=== PATIENT | male | born 1990 | race Caucasian/White ===

== ENCOUNTER 2016-11-13 21:48 | Emergency (ER) | payer SELFPAY ==
[~2016-11-13] VITALS: Ht 185.4 cm; Wt 74.8 kg
--- OUTSIDE RECORDS SUMMARY | 2016-11-13 21:58 | XMS REPORT | Continuity of Care Document ---
Author Author Interface Organization Interface Address Unknown Phone Unavailable Problems Problem Status Onset Date Classification Date Reported Comments Source Palpitations (finding) 08/20 Diagnosis 08/25/2016 [facility] Medications Medication Details Route Status Patient Instructions Ordering Provider Order Date Source Allergies, Adverse Reactions, Alerts Substance Category Reaction Severity Reaction type Status Date Reported Comments Source Immunizations Immunization Date Given Site Status Last Updated Comments Source No data available for this section No data available for this section [facility]. Results Order Name Results Value Reference Range Date Interpretation Comments Source Vital Signs Vital Sign Value Date Comments Source Encounters Location Location Details Encounter Type Encounter Number Reason For Visit Attending Provider ADM Date DC Date Status Source [facility] [id number] Emergency [id number] Viktor Malloy 08/20/2016 Active [facility] Emergency [id number] Viktor Malloy 08/21/2016 08/22/2016 [facility] Procedures Procedure Code Date Perfomer Comments Source No data available for this section [facility].
[2016-11-13] MEDS ORDERED: AMOX500T2 PO (22:01)
[2016-11-13 22:07] VITALS: BP 144/85
[2016-11-13 22:08] LABS: BASOPHILS # (AUTO) 0.1 10^3/uL (0.0-0.1); BASOPHILS % (AUTO) 1 % (0-10); EOSINOPHILS # (AUTO) 0.5 10^3/uL (0.0-0.3); EOSINOPHILS % (AUTO) 4 % (0-10); LYMPHOCYTES # (AUTO) 6.8 X 10^3 (1.0-4.0); LYMPHOCYTES % (AUTO) 58 % (12-44); MEAN CORPUSCULAR HEMOGLOBIN 29 PG (25-34); MEAN CORPUSCULAR HGB CONC 34 G/DL (32-36); MEAN CORPUSCULAR VOLUME 87 FL (80-99); MEAN PLATELET VOLUME 9.9 FL (7.4-10.4); MONOCYTES # (AUTO) 0.7 X 10^3 (0.0-1.0); MONOCYTES % (AUTO) 6 % (0-12); NEUTROPHILS # (AUTO) 3.8 X 10^3 (1.8-7.8); NEUTROPHILS % (AUTO) 32 % (42-75); PLATELET COUNT 278 10^3/uL (130-400); RED BLOOD COUNT 5.16 10^6/uL (4.35-5.85); RED CELL DISTRIBUTION WIDTH 13.1 % (10.0-14.5); WHITE BLOOD COUNT 11.8 10^3/uL (4.3-11.0)
--- NOTE | 2016-11-13 22:14 | ED Cardiac General ---
History of Present Illness General Chief Complaint: Cardiac/General Problems Stated Complaint: HEART RATE Nursing Triage Note: patient reports drinking 'anything and everything alcoholic today', patient reports palpitations starting 10 min [employer] Source: patient Exam Limitations: intoxication History of Present Illness Time seen by provider: 22:14 Initial Comments Patient sleeping upon this examiner entering the room. Arouses easily to verbal stimuli. 26 yo male patient presents to the ED with c/o palpitations with onset approximately 10 min [employer]. Patient denies any previous history of palpitations. Patient states his been drinking alcohol all day today. When asked how much ETOH, patient states "a freaking lot." Patient has difficulty keeping his eyes open. Patient does c/o heartburn and indigestion today. Has had heartburn for "a long time". Worse with alcohol and spicy foods. Patient complains of epigastric pain. Denies chest pain. Timing/Duration: constant, other (10 minutes prior to arrival) Location: other (epigastric pain) Activities at Onset: other (drinking EtOH) Prior CP/Workup: no prior chest pain, no prior cardiac workup Modifying Factors: worse with other (worse with alcohol and spicy foods) NTG SL [employer]: No ASA po [employer]: No Allergies and Home Medications Allergies Coded Allergies: No Known Drug Allergies (Unverified , 11/13/16) Home Medications Amoxicillin 500 Mg Tablet 500 MG PO (Reported) Omeprazole 40 Mg Capsule.dr #30 40 MG PO DAILY Prescribed by: MAXIMILIAN HOLLINS on 11/13/16 2305 Potassium Chloride 10 Meq Tablet.er #6 10 MEQ PO BID Prescribed by: MAXIMILIAN HOLLINS on 11/14/16 0045 Sucralfate 1 Gm/10 Ml Oral.susp #560 1 GM PO ACHS Prescribed by: MAXIMILIAN HOLLINS on 11/13/16 2305 Review of Systems Constitutional: No diaphoresis, No dizziness, No fever, No malaise, No weakness EENTM: No Symptoms Reported Respiratory: Denies Cough, Denies Orthopnea, Denies Shortness of Air Cardiovascular: Denies Chest Pain, Denies Edema, Denies Irregular Heart Rate, Denies Lightheadedness, PalpitationsDenies Syncope Gastrointestinal: See HPIDenies Abdomen Distended, Abdominal Pain ( epigastric pain)Denies Blood Streaked Stools, Denies Constipated, Denies Diarrhea, Denies Nausea, Poor AppetiteDenies Poor Fluid Intake, Denies Rectal Bleeding, Denies Vomiting, Other (heartburn and indigestion) Genitourinary: No Symptoms Reported Musculoskeletal: no symptoms reported Skin: no symptoms reported Psychiatric/Neurological: No Symptoms Reported All Other Systems Reviewed Negative Unless Noted: Yes (Negative excepted noted.) Past Vzredja-Impudh-Awbvxu Hx Patient Social History Alcohol Use: Rarely Uses Recreational Drug Use: No Smoking Status: Current Everyday Smoker Type Used: Cigarettes Recent Foreign Travel: No Contact w/Someone Who Travel: No Recent Infectious Disease Expo: No Recent Hopitalizations: No Physical Abuse Screen: No Sexual Abuse: No Surgeries HX Surgeries: Yes (wisdom teeth) Surgeries: Orthopedic Respiratory Hx Respiratory Disorders: No Cardiovascular Hx Cardiac Disorders: No Neurological Hx Neurological Disorders: No Reproductive System Hx Reproductive Disorders: No Sexually Transmitted Disease: No Genitourinary Hx Genitourinary Disorders: No Gastrointestinal Hx Gastrointestinal Disorders: No Musculoskeletal Hx Musculoskeletal Disorders: No Endocrine Hx Endocrine Disorders: No HEENT HX ENT Disorders: No Cancer Hx Cancer: No Psychosocial Hx Psychiatric Problems: No Integumentary HX Skin/Integumentary Disorder: No Blood Transfusions Hx Blood Disorders: No Reviewed Nursing Assessment Reviewed/Agree w Nursing PMH: Yes Family Medical History Significant Family History: No Pertinent Family Hx Physical Exam Vital Signs Vital Sign - Last 12Hours 11/13/16 21:56 Temp 98.4 Pulse 140 Resp 25 B/P 145/77 Pulse Ox 98 Capillary Refill : Less Than 3 Seconds General Appearance: No Apparent Distress WD/WN Other (Patient sleeping upon this examiner entering the room. 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 Arouses easily to verbal stimuli. Slurred speech. Drowsy.) Skin: Normal Color Warm/Dry Progress/Results/Core Measures Results/Orders Lab Results Laboratory Tests Test 1/7/17 22:00 11/14/16 00:20 Range/Units Activated Partial Thromboplast Time 25 24-35 SEC Alanine Aminotransferase (ALT/SGPT) 18 0-55 U/L Albumin 4.9 H 3.2-4.5 G/DL Alkaline Phosphatase 83 40-136 U/L Anion Gap 14 5-14 MMOL/L Aspartate Amino Transf (AST/SGOT) 17 5-34 U/L BUN/Creatinine Ratio 9 Basophils # (Auto) 0.1 0.0-0.1 10^3/uL Basophils (%) (Auto) 1 0-10 % Blood Urea Nitrogen 8 7-18 MG/DL Calcium Level 9.3 8.5-10.1 MG/DL Carbon Dioxide Level 21 21-32 MMOL/L Chloride Level 108 H 98-107 MMOL/L Creatine Kinase MB 1.0 <6.6 NG/ML Creatinine 0.88 0.60-1.30 MG/DL Eosinophils # (Auto) 0.5 H 0.0-0.3 10^3/uL Eosinophils (%) (Auto) 4 0-10 % Estimat Glomerular Filtration Rate > 60 Glucose Level 126 H 70-105 MG/DL Hematocrit 45 40-54 % Hemoglobin 15.0 13.3-17.7 G/DL INR Comment 0.9 0.8-1.4 Lymphocytes # (Auto) 6.8 H 1.0-4.0 X 10^3 Lymphocytes (%) (Auto) 58 H 12-44 % Magnesium Level 2.5 H 1.8-2.4 MG/DL Mean Corpuscular Hemoglobin 29 25-34 PG Mean Corpuscular Hemoglobin Concent 34 32-36 G/DL Mean Corpuscular Volume 87 80-99 FL Mean Platelet Volume 9.9 7.4-10.4 FL Monocytes # (Auto) 0.7 0.0-1.0 X 10^3 Monocytes (%) (Auto) 6 0-12 % Myoglobin 24.5 10.0-92.0 NG/ML Neutrophils # (Auto) 3.8 1.8-7.8 X 10^3 Neutrophils (%) (Auto) 32 L 42-75 % Platelet Count 278 130-400 10^3/uL Potassium Level 3.0 L 3.6-5.0 MMOL/L Prothrombin Time 11.9 L 12.2-14.7 SEC Red Blood Count 5.16 4.35-5.85 10^6/uL Red Cell Distribution Width 13.1 10.0-14.5 % Serum Alcohol 143 H <10 MG/DL Sodium Level 143 135-145 MMOL/L Total Bilirubin 0.2 0.1-1.0 MG/DL Total Creatine Kinase 123 30-200 U/L Total Protein 7.7 6.4-8.2 G/DL Troponin I < 0.30 <0.30 NG/ML White Blood Count 11.8 H 4.3-11.0 10^3/uL Ur Tricyclic Antidepressants Screen NEGATIVE NEGATIVE Urine Amphetamines Screen NEGATIVE NEGATIVE Urine Barbiturates Screen NEGATIVE NEGATIVE Urine Benzodiazepines Screen NEGATIVE NEGATIVE Urine Cannabinoids Screen POSITIVE H NEGATIVE Urine Cocaine Screen NEGATIVE NEGATIVE Urine Methadone Screen NEGATIVE NEGATIVE Urine Methamphetamines Screen NEGATIVE NEGATIVE Urine Opiates Screen NEGATIVE NEGATIVE Urine Oxycodone Screen NEGATIVE NEGATIVE Urine Phencyclidine Screen NEGATIVE NEGATIVE Urine Propoxyphene Screen NEGATIVE NEGATIVE My Orders Orders-MAXIMILIAN HOLLINS PA Saline Lock/Iv-Start (11/13/16 22:02) Ekg Tracing (11/13/16 22:02) Monitor-Rhythm Ecg Trace Only (11/13/16 22:02) Cbc With Automated Diff (11/13/16 22:02) Magnesium (11/13/16 22:02) Chest 1 View, Ap/Pa Only (11/13/16 22:02) Cardiac Profile 1 (11/13/16 22:02) Comprehensive Metabolic Panel (11/13/16 22:02) Myoglobin Serum (11/13/16 22:02) Protime With Inr (11/13/16 22:02) Partial Thromboplastin Time (11/13/16 22:02) Creatine Kinase (11/13/16 22:02) Creatine Kinase Mb (11/13/16 22:02) Alcohol (11/13/16 22:02) Drug Screen Stat (Urine) (11/13/16 22:02) Famotidine Injection (Pepcid Injection) (11/13/16 22:42) Ns Iv 1000 Ml (Sodium Chloride 0.9%) (11/13/16 22:42) Ns W/Kcl 20 Meq/L (Ns Iv W/Kcl 20 Meq/L) (11/13/16 22:45) Ns Iv 1000 Ml (Sodium Chloride 0.9%) (11/13/16 22:44) Medications Given in ED Vital Signs/I&O Vital Sign - Last 12Hours 11/13/16 11/13/16 11/13/16 11/13/16 21:56 22:07 22:07 22:17 Temp 98.4 Pulse 140 109 109 99 Resp 25 16 16 16 B/P 145/77 144/85 144/85 112/62 Pulse Ox 98 98 98 97 O2 Delivery Room Air Room Air Room Air 11/13/16 11/13/16 11/14/16 22:30 23:15 01:06 Temp 97.6 Pulse 99 81 77 Resp 15 14 14 B/P 112/67 101/63 Pulse Ox 100 97 99 O2 Delivery Room Air Room Air Room Air Blood Pressure Mean: 104 Diagnostic Imaging Diagonstic Imaging: Xray Plain Films/CT/US/NM/MRI: chest Comments no acute cardiopulmonary process. Reviewed: Reviewed/Discussed (discussed and reviewed with Dr. Lizama.) Departure Communication Progress Notes Patient resting comfortably upon this examiner entering the room. Arouses to verbal stimuli. Patient is more alert time. Laboratory and diagnostic findings discussed with the patient. Patient reports overall feeling much better. Heart rate noted to be between 70-80 bpm. Patient is alert and oriented, no acute distress. CV regular rate and rhythm no murmur, lungs clear to auscultation. Plan for discharge to home. All return precautions discussed with the patient as described in the discharge instructions of this report. Patient voices understanding and agrees with the treatment plan. Impression Impression: Primary Impression: Alcoholic gastritis without bleeding Qualified Code: K29.20 - Alcoholic gastritis without bleeding Additional Impressions: Alcohol intoxication Qualified Code: F10.120 - Alcohol abuse with intoxication, uncomplicated Hypokalemia Disposition: 01 HOME, SELF-CARE Condition: Improved Departure-Patient Inst. Decision time for Depature: 00:44 Referrals: NO,LOCAL PHYSICIAN (PCP) Primary Care Physician Patient Instructions: ALCOHOL AND SUBSTANCE ABUSE, Gastritis (DC), Hypokalemia (DC) Add. Discharge Instructions: All discharge instructions reviewed with patient and/or family. Voiced understanding. Medications as instructed. No ibuprofen, Aleve, spicy foods, fatty foods, alcohol, tobacco use, secondhand smoke, caffeinated beverages, or carbonated beverages. Do not eat within 2 hours of lying down. Elevate the head of your bed if needed for reflux symptoms. Follow-up with family practitioner for recheck and possible need for outpatient upper endoscopy. Call for appointment time Tuesday. Return to the emergency department for worsened pain, vomiting, vomiting blood, black stools, rectal bleeding, irregular heartbeat, or any other concerns. Scripts Potassium Chloride 10 Meq Tablet.er10 Meq PO BID #6 TAB Ref 0 Prov:MAXIMILIAN HOLLINS 11/14/16 Sucralfate (Carafate)1 Gm/10 Ml Oral.susp1 Gm PO ACHS #560 ML Ref 0 Prov:MAXIMILIAN HOLLINS 11/13/16 Omeprazole 40 Mg Capsule.dr40 Mg PO DAILY #30 CAP Ref 0 Prov:MAXIMILIAN HOLLINS 11/13/16 Work/School Note: [employer] MAXIMILIAN HOLLINS Nov 13, 2016 22:14 Call for appointment time Tuesday. Return to the emergency department for worsened pain, vomiting, vomiting blood, black stools, rectal bleeding, irregular heartbeat, or any other concerns. Scripts Potassium Chloride 10 Meq Tablet.er10 Meq PO BID #6 TAB Ref 0 Prov:MAXIMILIAN HOLLINS 11/14/16 Sucralfate (Carafate)1 Gm/10 Ml Oral.susp1 Gm PO ACHS #560 ML Ref 0 Prov:MAXIMILIAN HOLLINS 11/13/16 Omeprazole 40 Mg Capsule.dr40 Mg PO DAILY #30 CAP Ref 0 Prov:MAXIMILIAN HOLLINS 11/13/16 Work/School Note: [employer] MAXIMILIAN HOLLINS Nov 13, 2016 22:14
[2016-11-13 22:17] VITALS: BP 112/62
[2016-11-13 22:17] LABS: INR 0.9 (0.8-1.4); PROTHROMBIN TIME PATIENT 11.9 SEC (12.2-14.7)
[2016-11-13 22:29] LABS: ALANINE AMINOTRANSFERASE 18 U/L (0-55); ALBUMIN 4.9 G/DL (3.2-4.5); ANION GAP 14 MMOL/L (5-14); ASPARTATE AMINO TRANSFERASE 17 U/L (5-34); BILIRUBIN,TOTAL 0.2 MG/DL (0.1-1.0); BLOOD UREA NITROGEN 8 MG/DL (7-18); BUN/CREATININE RATIO 9; CALCIUM 9.3 MG/DL (8.5-10.1); CARBON DIOXIDE 21 MMOL/L (21-32); CHLORIDE 108 MMOL/L (98-107); CREATINE KINASE 123 U/L (30-200); CREATININE SERUM 0.88 MG/DL (0.60-1.30); GFR ESTIMATED > 60; GLUCOSE 126 MG/DL (70-105); MAGNESIUM 2.5 MG/DL (1.8-2.4); SODIUM 143 MMOL/L (135-145); TOTAL PROTEIN 7.7 G/DL (6.4-8.2)
[2016-11-13 22:30] VITALS: BP 112/67
[2016-11-13 22:37] LABS: MYOGLOBIN SERUM 24.5 NG/ML (10.0-92.0)
[2016-11-13] MEDS ORDERED: NS IV 1000 ML 1,000 ML IV ONE ×2 (22:42→22:44)
[2016-11-13] MEDS ORDERED: FAMOTIDINE 20MG/2ML IV (PEPCID) IV STA (22:42)
[2016-11-13] MEDS ORDERED: NS W/KCL 20 MEQ/L 1,000 ML IV SCH (22:45)
[2016-11-13] MEDS ORDERED: OMEP40CA36 PO (23:05)
[2016-11-13] MEDS ORDERED: SUCR1ORA5 PO (23:05)
[2016-11-13 23:15] VITALS: BP 101/63
[2016-11-14] MEDS ORDERED: POTA10TA10 PO (00:45)
[2016-11-14 01:06] VITALS: BP 114/58
--- NOTE | 2016-11-14 06:35 | Diagnostic Imaging Report ---
INDICATION: Palpitations. COMPARISON: None available. TECHNIQUE: Single frontal radiograph of the chest dated November 13, 2016 FINDINGS: The cardiac silhouette is within normal limits. No significant pulmonary vascular congestion. The lungs are clear. No pleural effusion. No pneumothorax. No acute osseous abnormality. IMPRESSION: No acute cardiopulmonary abnormality. Dictated by: Dictated on workstation # [id number]
== END 2016-11-14 01:05 | disposition home or self-care (01) ==
LOC: ER 21:54
DX: K29.20 Alcoholic gastritis without bleeding (principal); F10.129 Alcohol abuse with intoxication, unspecified; E87.6 Hypokalemia; F17.210 Nicotine dependence, cigarettes, uncomplicated; Y90.6 Blood alcohol level of 120-199 mg/100 ml
CPT/HCPCS: 36415; 71010; 80053; 80306; 80320; 82550; 82553; 83735; 83874; 84484; 85025; 85610; 85730; 93005; 93041; 96361; 96374

== ENCOUNTER 2016-12-10 12:51 | Emergency (ER) | payer SELFPAY ==
[~2016-12-10] VITALS: Ht 185.4 cm; Wt 74.8 kg
[~2016-12-10 12:51] MED LIST: AMOX500T2 PO; OMEP40CA36 PO; POTA10TA10 PO; SUCR1ORA5 PO
[2016-12-10] MEDS ORDERED: KETOROLAC 30 MG/ML VIAL IVP ONE (13:00)
--- NOTE | 2016-12-10 13:01 | ED General ---
General Chief Complaint: Abdominal/GI Problems Stated Complaint: ABD PAIN,CONGESTION,VOMITING Nursing Triage Note: pt c/o chest pain, dyspnea, palpitations, n/v abd pain Nursing Sepsis Screen: No Definite Risk Source of Information: Patient Exam Limitations: No Limitations History of Present Illness Time Seen by Provider: 13:00 Initial Comments To ER with palpitations chest tightness and shortness of breath for several months. He is a one pack per day smoker but states that he quit yesterday. About 30 minutes ago he developed some nausea vomiting and right flank pain. The pain is currently gone and he is not nauseated anymore. No fevers or chills. No dysuria. No diarrhea or constipation. Timing/Duration: Intermittent Severity: Moderate Allergies and Home Medications Allergies Coded Allergies: No Known Drug Allergies (Unverified , 11/13/16) Home Medications Omeprazole 40 Mg Capsule.dr #30 40 MG PO DAILY Prescribed by: MAXIMILIAN HOLLINS on 11/13/16 2305 Constitutional: see HPI EENTM: see HPI Respiratory: No cough, short of breath Cardiovascular: no symptoms reported Genitourinary: no symptoms reported Musculoskeletal: no symptoms reported Skin: no symptoms reported Psychiatric/Neurological: No Symptoms Reported Hematologic/Lymphatic: No Symptoms Reported Past Yzcthqi-Xxqjnd-Tbfuki Hx Patient Social History Alcohol Use: Rarely Uses Recreational Drug Use: No Smoking Status: Current Everyday Smoker Type Used: Cigarettes Recent Foreign Travel: No Contact w/Someone Who Travel: No Recent Infectious Disease Expo: No Recent Hopitalizations: No Surgeries HX Surgeries: Yes (wisdom teeth) Surgeries: Orthopedic Respiratory Hx Respiratory Disorders: No Cardiovascular Hx Cardiac Disorders: No Neurological Hx Neurological Disorders: No Reproductive System Hx Reproductive Disorders: No Sexually Transmitted Disease: No Genitourinary Hx Genitourinary Disorders: No Gastrointestinal Hx Gastrointestinal Disorders: No Musculoskeletal Hx Musculoskeletal Disorders: No Endocrine Hx Endocrine Disorders: No HEENT HX ENT Disorders: No Cancer Hx Cancer: No Psychosocial Hx Psychiatric Problems: No Integumentary HX Skin/Integumentary Disorder: No Blood Transfusions Hx Blood Disorders: No Family Medical History Significant Family History: No Pertinent Family Hx Physical Exam Vital Signs Vital Sign - Last 12Hours 12/10/16 12:55 Temp 98.9 Pulse 83 Resp 16 B/P 125/70 Pulse Ox 96 O2 Delivery Room Air Capillary Refill : Less Than 3 Seconds General Appearance: No Apparent Distress WD/WN Eyes: Bilateral Eye EOMI, Bilateral Eye Normal Inspection, Bilateral Eye PERRL HEENT: PERRL/EOMI TMs Normal Neck: Full Range of Motion Normal Inspection Respiratory: Lungs Clear Normal Breath Sounds No Accessory Muscle Use No Respiratory Distress Cardiovascular: Regular Rate, Rhythm Normal Peripheral Pulses Gastrointestinal: Non Tender Soft Extremity: Normal Capillary Refill Normal Inspection Neurologic/Psychiatric: Alert Oriented x3 No Motor/Sensory Deficits Skin: Normal Color Warm/Dry Progress/Results/Core Measures Results/Orders Lab Results Laboratory Tests Test 12/10/16 13:02 12/10/16 13:20 Range/Units Alanine Aminotransferase (ALT/SGPT) 16 0-55 U/L Albumin 4.7 H 3.2-4.5 G/DL Alkaline Phosphatase 64 40-136 U/L Anion Gap 10 5-14 MMOL/L Aspartate Amino Transf (AST/SGOT) 18 5-34 U/L BUN/Creatinine Ratio 12 Basophils # (Auto) 0.0 0.0-0.1 10^3/uL Basophils (%) (Auto) 0 0-10 % Blood Urea Nitrogen 12 7-18 MG/DL Calcium Level 9.3 8.5-10.1 MG/DL Carbon Dioxide Level 24 21-32 MMOL/L Chloride Level 106 98-107 MMOL/L Creatinine 0.97 0.60-1.30 MG/DL Eosinophils # (Auto) 0.2 0.0-0.3 10^3/uL Eosinophils (%) (Auto) 1 0-10 % Estimat Glomerular Filtration Rate > 60 Glucose Level 84 70-105 MG/DL Hematocrit 43 40-54 % Hemoglobin 14.6 13.3-17.7 G/DL Lymphocytes # (Auto) 2.7 1.0-4.0 X 10^3 Lymphocytes (%) (Auto) 24 12-44 % Mean Corpuscular Hemoglobin 30 25-34 PG Mean Corpuscular Hemoglobin Concent 34 32-36 G/DL Mean Corpuscular Volume 88 80-99 FL Mean Platelet Volume 10.6 H 7.4-10.4 FL Monocytes # (Auto) 0.7 0.0-1.0 X 10^3 Monocytes (%) (Auto) 6 0-12 % Neutrophils # (Auto) 7.7 1.8-7.8 X 10^3 Neutrophils (%) (Auto) 68 42-75 % Platelet Count 217 130-400 10^3/uL Potassium Level 3.6 3.6-5.0 MMOL/L Red Blood Count 4.90 4.35-5.85 10^6/uL Red Cell Distribution Width 12.7 10.0-14.5 % Serum Alcohol < 10 <10 MG/DL Sodium Level 140 135-145 MMOL/L Total Bilirubin 0.7 0.1-1.0 MG/DL Total Protein 6.8 6.4-8.2 G/DL White Blood Count 11.3 H 4.3-11.0 10^3/uL Ur Tricyclic Antidepressants Screen NEGATIVE NEGATIVE Urine Amphetamines Screen NEGATIVE NEGATIVE Urine Bacteria LARGE H /HPF Urine Barbiturates Screen NEGATIVE NEGATIVE Urine Benzodiazepines Screen NEGATIVE NEGATIVE Urine Bilirubin NEGATIVE NEGATIVE Urine Cannabinoids Screen NEGATIVE NEGATIVE Urine Casts NONE /LPF Urine Clarity CLEAR Urine Cocaine Screen NEGATIVE NEGATIVE Urine Color YELLOW Urine Crystals NONE /LPF Urine Culture Indicated YES Urine Glucose (UA) NEGATIVE NEGATIVE Urine Ketones NEGATIVE NEGATIVE Urine Leukocyte Esterase NEGATIVE NEGATIVE Urine Methadone Screen NEGATIVE NEGATIVE Urine Methamphetamines Screen NEGATIVE NEGATIVE Urine Mucus NEGATIVE /LPF Urine Nitrite NEGATIVE NEGATIVE Urine Opiates Screen NEGATIVE NEGATIVE Urine Oxycodone Screen NEGATIVE NEGATIVE Urine Phencyclidine Screen NEGATIVE NEGATIVE Urine Propoxyphene Screen NEGATIVE NEGATIVE Urine Protein NEGATIVE NEGATIVE Urine RBC NONE /HPF Urine RBC (Auto) NEGATIVE NEGATIVE Urine Specific [place] 1.005 L 1.016-1.022 Urine Squamous Epithelial Cells TNTC H /HPF Urine Urobilinogen NORMAL NORMAL MG/DL Urine WBC 2-5 /HPF Urine pH 7 5-9 My Orders Marlene-JESICA ESPINAL APRN Cbc With Automated Diff (12/10/16 12:59) Comprehensive Metabolic Panel (12/10/16 12:59) Chest Pa/Lat (2 View) (12/10/16 12:59) Ekg Tracing (12/10/16 12:59) Thyroid Stimulating Hormone (12/10/16 12:59) Ua Culture If Indicated (12/10/16 12:59) Ketorolac Injection (Toradol Injection) (12/10/16 13:00) Saline Lock/Iv-Start (12/10/16 12:59) Drug Screen Stat (Urine) (12/10/16 13:04) Alcohol (12/10/16 13:04) Urine Culture (12/10/16 13:20) Antacid Suspension (Mylanta Suspension (12/10/16 13:45) Lidocaine 2% Viscous 15 Ml (Xylocaine Vi (12/10/16 13:45) Medications Given in ED Current Medications Medications Dose Ordered Sig/Juanita Route Start Time Stop Time Status Last Admin Dose Admin Ketorolac Tromethamine 30 mg ONCE ONCE IVP 12/10/16 13:00 12/10/16 13:01 DC 12/10/16 13:07 30 MG Vital Signs/I&O Vital Sign - Last 12Hours 12/10/16 12:55 Temp 98.9 Pulse 83 Resp 16 B/P 125/70 Pulse Ox 96 O2 Delivery Room Air Blood Pressure Mean: 88 Departure Impression Impression: Primary Impression: Nausea and vomiting Additional Impression: Chest pain Disposition: HOME, SELF-CARE Condition: Stable Departure-Patient Inst. Decision time for Depature: 14:13 Referrals: NO,LOCAL PHYSICIAN (PCP/Family) Primary Care Physician Patient Instructions: Nausea and Vomiting, Adult Add. Discharge Instructions: 1. Return to ER for any concerns 2. Follow-up with your doctor next week 3. All discharge instructions reviewed with patient and/or family. Voiced understanding. Scripts Ondansetron (Zofran Odt)8 Mg Tab.rapdis8 Mg PO Q6H PRN NAUSEA/VOMITING #10 TAB Prov:JESICA ESPINAL APRN 12/10/16 JESICA ESPINAL APRN Dec 10, 2016 13:01
[2016-12-10 13:13] LABS: BASOPHILS % (AUTO) 0 % (0-10); EOSINOPHILS # (AUTO) 0.2 10^3/uL (0.0-0.3); EOSINOPHILS % (AUTO) 1 % (0-10); LYMPHOCYTES # (AUTO) 2.7 X 10^3 (1.0-4.0); LYMPHOCYTES % (AUTO) 24 % (12-44); MEAN CORPUSCULAR HEMOGLOBIN 30 PG (25-34); MEAN CORPUSCULAR HGB CONC 34 G/DL (32-36); MEAN CORPUSCULAR VOLUME 88 FL (80-99); MEAN PLATELET VOLUME 10.6 FL (7.4-10.4); MONOCYTES # (AUTO) 0.7 X 10^3 (0.0-1.0); MONOCYTES % (AUTO) 6 % (0-12); NEUTROPHILS # (AUTO) 7.7 X 10^3 (1.8-7.8); NEUTROPHILS % (AUTO) 68 % (42-75); PLATELET COUNT 217 10^3/uL (130-400); RED CELL DISTRIBUTION WIDTH 12.7 % (10.0-14.5); WHITE BLOOD COUNT 11.3 10^3/uL (4.3-11.0)
--- NOTE | 2016-12-10 13:22 | Diagnostic Imaging Report ---
INDICATION: Shortness of breath, chest pain. PA and lateral chest. FINDINGS: Heart size and pulmonary vascularity are normal. Lungs are clear. There are no effusions or pneumothoraces. IMPRESSION: Negative chest. Dictated by: Dictated on workstation # [id number]
[2016-12-10 13:27] LABS: BILIRUBIN,URINE NEGATIVE (NEGATIVE); KETONES,URINE NEGATIVE (NEGATIVE); LEUKOCYTE ESTERASE ,URINE NEGATIVE (NEGATIVE); NITRITE,URINE NEGATIVE (NEGATIVE); PH,URINE 7 (5-9); PROTEIN,URINE NEGATIVE (NEGATIVE); UROBILINOGEN,URINE NORMAL (NORMAL)
[2016-12-10 13:34] LABS: SQUAMOUS EPITHELIAL CELL,UR TNTC /HPF
[2016-12-10] MEDS ORDERED: LIDOCAINE 2% VISCOUS 15 ML UDC PO ONE (13:45)
[2016-12-10] MEDS ORDERED: ANTACID SUSP 30 ML UDC (MYLANTA) PO ONE (13:45)
[2016-12-10 14:00] LABS: ALANINE AMINOTRANSFERASE 16 U/L (0-55); ALBUMIN 4.7 G/DL (3.2-4.5); ALCOHOL < 10 MG/DL (<10); ANION GAP 10 MMOL/L (5-14); ASPARTATE AMINO TRANSFERASE 18 U/L (5-34); BILIRUBIN,TOTAL 0.7 MG/DL (0.1-1.0); BLOOD UREA NITROGEN 12 MG/DL (7-18); BUN/CREATININE RATIO 12; CALCIUM 9.3 MG/DL (8.5-10.1); CARBON DIOXIDE 24 MMOL/L (21-32); CHLORIDE 106 MMOL/L (98-107); CREATININE SERUM 0.97 MG/DL (0.60-1.30); GFR ESTIMATED > 60; GLUCOSE 84 MG/DL (70-105); POTASSIUM 3.6 MMOL/L (3.6-5.0); SODIUM 140 MMOL/L (135-145); TOTAL PROTEIN 6.8 G/DL (6.4-8.2)
[2016-12-10 14:12] LABS: THYROID STIMULATING HORMONE 0.55 UIU/ML (0.35-4.94)
[2016-12-10] MEDS ORDERED: ONDA8TAB9 PO (14:14)
[2016-12-10 15:02] VITALS: BP 118/62
== END 2016-12-10 15:02 | disposition home or self-care (01) ==
LOC: EDUNIT# 12:51 → ER 12:53
DX: R07.89 Other chest pain (principal); R11.2 Nausea with vomiting, unspecified; R10.31 Right lower quadrant pain; F17.210 Nicotine dependence, cigarettes, uncomplicated
CPT/HCPCS: 36415; 71020; 80053; 80306; 80320; 81000; 84443; 85025; 87088; 93005; 96374

== ENCOUNTER 2017-01-15 12:59 | Emergency (ER) | payer SELFPAY ==
[~2017-01-15] VITALS: Ht 185.4 cm; Wt 74.8 kg
[~2017-01-15 12:59] MED LIST changes: +ONDA8TAB9 PO
[2017-01-15] MEDS ORDERED: NS IV 1000 ML 1,000 ML IV ONE (13:16)
[2017-01-15 13:18] LABS: BASOPHILS % (AUTO) 0 % (0-10); EOSINOPHILS # (AUTO) 0.1 10^3/uL (0.0-0.3); EOSINOPHILS % (AUTO) 2 % (0-10); LYMPHOCYTES # (AUTO) 1.9 X 10^3 (1.0-4.0); LYMPHOCYTES % (AUTO) 30 % (12-44); MEAN CORPUSCULAR HEMOGLOBIN 30 PG (25-34); MEAN CORPUSCULAR HGB CONC 34 G/DL (32-36); MEAN CORPUSCULAR VOLUME 88 FL (80-99); MEAN PLATELET VOLUME 10.2 FL (7.4-10.4); MONOCYTES # (AUTO) 0.3 X 10^3 (0.0-1.0); MONOCYTES % (AUTO) 6 % (0-12); NEUTROPHILS # (AUTO) 3.8 X 10^3 (1.8-7.8); NEUTROPHILS % (AUTO) 62 % (42-75); PLATELET COUNT 210 10^3/uL (130-400); RED BLOOD COUNT 5.16 10^6/uL (4.35-5.85); RED CELL DISTRIBUTION WIDTH 13.1 % (10.0-14.5); WHITE BLOOD COUNT 6.1 10^3/uL (4.3-11.0)
--- NOTE | 2017-01-15 13:22 | ED Cardiac General ---
History of Present Illness General Chief Complaint: Cardiac/General Problems Stated Complaint: INSCREASED HEART RATE Nursing Triage Note: to ER by [facility] with reports of intermittent tachycardia. Patient reports similar event in past, with negative work-up. Patient reports that he did not follow-up with anyone after that episode. Source: patient Exam Limitations: no limitations History of Present Illness Time seen by provider: 13:05 Initial Comments Here by EMS with report of intermittent fast heart rate. States he is just watching TV. Denies any significant caffeine. Has history of previous in the past without any significant findings. Denies nausea or vomiting. States that he has feeling of palpitations in his chest. Notes that his heart rate is fast. Timing/Duration: 1 hour Severity: moderate Location: central Activities at Onset: none Prior CP/Workup: non-cardiac NTG SL SENIOR REACTOR OPERATOR: No ASA po SENIOR REACTOR OPERATOR: No Associated Systoms: No Chest Pain, No Fever/Chills, No Nausea/Vomiting, No Shortness of Air, No Weakness Allergies and Home Medications Allergies Coded Allergies: No Known Drug Allergies (Unverified , 11/13/16) Home Medications No Active Prescriptions or Reported Meds Review of Systems Constitutional: see HPINo chills, No fever EENTM: No Symptoms Reported Respiratory: No Symptoms Reported Cardiovascular: See HPIDenies Chest Pain, Palpitations Gastrointestinal: No Symptoms ReportedDenies Nausea, Denies Vomiting Genitourinary: No Symptoms Reported Musculoskeletal: no symptoms reported All Other Systems Reviewed Negative Unless Noted: Yes Past Haqoowv-Rcwqrs-Oltpat Hx Patient Social History Alcohol Use: Occasionally Uses Recreational Drug Use: No Smoking Status: Current Everyday Smoker Type Used: Cigarettes Recent Foreign Travel: No Contact w/Someone Who Travel: No Recent Infectious Disease Expo: No Recent Hopitalizations: No Surgeries HX Surgeries: Yes (wisdom teeth) Surgeries: Orthopedic Respiratory Hx Respiratory Disorders: No Cardiovascular Hx Cardiac Disorders: No Neurological Hx Neurological Disorders: No Reproductive System Hx Reproductive Disorders: No Sexually Transmitted Disease: No Genitourinary Hx Genitourinary Disorders: No Gastrointestinal Hx Gastrointestinal Disorders: Yes Gastrointestinal Disorders: Gastroesophageal Reflux Musculoskeletal Hx Musculoskeletal Disorders: No Endocrine Hx Endocrine Disorders: No HEENT HX ENT Disorders: No Cancer Hx Cancer: No Psychosocial Hx Psychiatric Problems: No Integumentary HX Skin/Integumentary Disorder: No Blood Transfusions Hx Blood Disorders: No Reviewed Nursing Assessment Reviewed/Agree w Nursing PMH: Yes Family Medical History Significant Family History: CAD Under 55 Years Old Physical Exam Vital Signs Vital Sign - Last 12Hours 01/15/17 13:07 Temp 98.4 Pulse 71 Resp 18 B/P 118/76 Pulse Ox 98 O2 Delivery Room Air Capillary Refill : Less Than 3 Seconds General Appearance: No Apparent Distress WD/WN HEENT: PERRL/EOMI Pharynx Normal Neck: Non Tender Supple Respiratory: Lungs Clear Normal Breath Sounds Cardiovascular: Regular Rate, Rhythm No Murmur Gastrointestinal: Non Tender Soft Extremity: Non Tender No Calf Tenderness Neurologic/Psychiatric: Alert Oriented x3 Skin: Normal Color Warm/Dry Progress/Results/Core Measures Results/Orders Lab Results Laboratory Tests Test 01/15/17 13:06 01/15/17 14:58 Range/Units Alanine Aminotransferase (ALT/SGPT) 15 0-55 U/L Albumin 4.2 3.2-4.5 G/DL Alkaline Phosphatase 61 40-136 U/L Anion Gap 13 5-14 MMOL/L Aspartate Amino Transf (AST/SGOT) 16 5-34 U/L BUN/Creatinine Ratio 13 Basophils # (Auto) 0.0 0.0-0.1 10^3/uL Basophils (%) (Auto) 0 0-10 % Blood Urea Nitrogen 12 7-18 MG/DL Calcium Level 9.2 8.5-10.1 MG/DL Carbon Dioxide Level 21 21-32 MMOL/L Chloride Level 108 H 98-107 MMOL/L Creatinine 0.93 0.60-1.30 MG/DL D-Dimer < 0.27 0.00-0.49 UG/ML Eosinophils # (Auto) 0.1 0.0-0.3 10^3/uL Eosinophils (%) (Auto) 2 0-10 % Estimat Glomerular Filtration Rate > 60 Glucose Level 101 70-105 MG/DL Hematocrit 45 40-54 % Hemoglobin 15.4 13.3-17.7 G/DL Lymphocytes # (Auto) 1.9 1.0-4.0 X 10^3 Lymphocytes (%) (Auto) 30 12-44 % Magnesium Level 2.1 1.8-2.4 MG/DL Mean Corpuscular Hemoglobin 30 25-34 PG Mean Corpuscular Hemoglobin Concent 34 32-36 G/DL Mean Corpuscular Volume 88 80-99 FL Mean Platelet Volume 10.2 7.4-10.4 FL Monocytes # (Auto) 0.3 0.0-1.0 X 10^3 Monocytes (%) (Auto) 6 0-12 % Neutrophils # (Auto) 3.8 1.8-7.8 X 10^3 Neutrophils (%) (Auto) 62 42-75 % Platelet Count 210 130-400 10^3/uL Potassium Level 3.6 3.6-5.0 MMOL/L Red Blood Count 5.16 4.35-5.85 10^6/uL Red Cell Distribution Width 13.1 10.0-14.5 % Sodium Level 142 135-145 MMOL/L Thyroid Stimulating Hormone (TSH) 0.32 L 0.35-4.94 UIU/ML Total Bilirubin 0.9 0.1-1.0 MG/DL Total Protein 6.7 6.4-8.2 G/DL Troponin I < 0.30 <0.30 NG/ML White Blood Count 6.1 4.3-11.0 10^3/uL Ur Tricyclic Antidepressants Screen NEGATIVE NEGATIVE Urine Amphetamines Screen NEGATIVE NEGATIVE Urine Bacteria NEGATIVE /HPF Urine Barbiturates Screen NEGATIVE NEGATIVE Urine Benzodiazepines Screen NEGATIVE NEGATIVE Urine Bilirubin NEGATIVE NEGATIVE Urine Cannabinoids Screen NEGATIVE NEGATIVE Urine Casts NONE /LPF Urine Clarity CLEAR Urine Cocaine Screen NEGATIVE NEGATIVE Urine Color YELLOW Urine Crystals NONE /LPF Urine Culture Indicated NO Urine Glucose (UA) NEGATIVE NEGATIVE Urine Ketones NEGATIVE NEGATIVE Urine Leukocyte Esterase NEGATIVE NEGATIVE Urine Methadone Screen NEGATIVE NEGATIVE Urine Methamphetamines Screen NEGATIVE NEGATIVE Urine Mucus NEGATIVE /LPF Urine Nitrite NEGATIVE NEGATIVE Urine Opiates Screen NEGATIVE NEGATIVE Urine Oxycodone Screen NEGATIVE NEGATIVE Urine Phencyclidine Screen NEGATIVE NEGATIVE Urine Propoxyphene Screen NEGATIVE NEGATIVE Urine Protein NEGATIVE NEGATIVE Urine RBC NONE /HPF Urine RBC (Auto) NEGATIVE NEGATIVE Urine Specific [place] 1.010 L 1.016-1.022 Urine Squamous Epithelial Cells NONE /HPF Urine Urobilinogen NORMAL NORMAL MG/DL Urine WBC NONE /HPF Urine pH 8 5-9 My Orders Orders-JAMSHID DAMON MD Fibrin Degradation Products (01/15/17 13:15) Magnesium (01/15/17 13:15) Troponin I (01/15/17 13:15) Chest Pa/Lat (2 View) (01/15/17 13:15) Ns Iv 1000 Ml (Sodium Chloride 0.9%) (01/15/17 13:16) Medications Given in ED Current Medications Medications Dose Ordered Sig/Juanita Route Start Time Stop Time Status Last Admin Dose Admin Sodium Chloride 1,000 ml @ 0 mls/hr Q0M ONCE IV 01/15/17 13:16 01/15/17 13:17 DC 01/15/17 13:23 0 MLS/HR Vital Signs/I&O Vital Sign - Last 12Hours 01/15/17 13:07 Temp 98.4 Pulse 71 Resp 18 B/P 118/76 Pulse Ox 98 O2 Delivery Room Air Blood Pressure Mean: 90 Progress Note : Progress Note Seen and evaluated. IV, labs, normal saline 1 L bolus and EKG ordered. Monitor patient. 1630: Findings reviewed with patient. No acute findings. No indication of cardiac disease currently. I did discuss with him about follow- up. He will follow up with a tube machine operator this week. Patient did have heart rate in the 60s to 70s throughout the previous 2 hours of the visit here and no tachycardic events. Discharged home with return precautions. Patient verbalize understanding instructions and agreement with plan. ECG Initial ECG Impression Date: Jan 15, 2017 Initial ECG Impression Time: 13:03 Initial ECG Rate: 80 Initial ECG Rhythm: Normal Sinus Initial ECG Comparisson: Unchanged Comment Sinus rhythm with normal axis. No evidence of ST elevation [place]. Early repoll pattern suggested. Similar to previous in appearance from 12/10/16. Interpreted by me. Diagnostic Imaging Diagonstic Imaging: Xray Plain Films/CT/US/NM/MRI: chest Comments VIA [facility]. [place], [place] NAME: RAULITO MORLEY [facility] REC#: [id number] PT STATUS: REG ER : 1990 PHYSICIAN: JAMSHID DAMON MD ADMIT DATE: 01/15/17/ER Draft Date of Exam:01/15/17 CHEST PA/LAT (2 VIEW) INDICATION: Tachycardia and shortness of breath. COMPARISON: 12/10/2016 FINDINGS: 2 views of the chest are obtained. Heart size is normal. The pulmonary vessels appear unremarkable. There is no pneumothorax, mediastinal widening or pleural fluid demonstrated. The lungs are clear. IMPRESSION: Negative chest. Dictated on workstation # [id number] Dict: 01/15/17 1338 Trans: 01/15/17 1345 [facility] [id number] Interpreted by: TIFFANIE RONQUILLO DO Electronically signed by: Departure Impression Impression: Primary Impression: Palpitations Disposition: 01 HOME, SELF-CARE Condition: Improved Departure-Patient Inst. Decision time for Depature: 16:42 [facility]: [facility]OME [facility] NO,LOCAL PHYSICIAN (PCP) Primary Care Physician Patient Instructions: Palpitations (DC) Add. Discharge Instructions: All discharge instructions reviewed with patient and/or family. Voiced understanding. Decrease smoking and avoid caffeinated beverages. Drink plenty of fluids. Follow-up with her doctor this week. Call Tuesday morning for appointment. Return for any persistent palpitations, chest pain, weakness, breathing problems , shortness of breath, sweating, vomiting or other concerns as needed. Scripts No Active Prescriptions or Reported Meds Copy Copies To 1: [facility] JAMSHID DAMON MD Jan 15, 2017 13:22
[2017-01-15 13:34] LABS: ALANINE AMINOTRANSFERASE 15 U/L (0-55); ALBUMIN 4.2 G/DL (3.2-4.5); ANION GAP 13 MMOL/L (5-14); ASPARTATE AMINO TRANSFERASE 16 U/L (5-34); BILIRUBIN,TOTAL 0.9 MG/DL (0.1-1.0); BLOOD UREA NITROGEN 12 MG/DL (7-18); BUN/CREATININE RATIO 13; CALCIUM 9.2 MG/DL (8.5-10.1); CARBON DIOXIDE 21 MMOL/L (21-32); CHLORIDE 108 MMOL/L (98-107); CREATININE SERUM 0.93 MG/DL (0.60-1.30); GFR ESTIMATED > 60; GLUCOSE 101 MG/DL (70-105); POTASSIUM 3.6 MMOL/L (3.6-5.0); SODIUM 142 MMOL/L (135-145); TOTAL PROTEIN 6.7 G/DL (6.4-8.2)
--- NOTE | 2017-01-15 13:45 | Diagnostic Imaging Report ---
INDICATION: Tachycardia and shortness of breath. COMPARISON: 12/10/2016 FINDINGS: 2 views of the chest are obtained. Heart size is normal. The pulmonary vessels appear unremarkable. There is no pneumothorax, mediastinal widening or pleural fluid demonstrated. The lungs are clear. IMPRESSION: Negative chest. Dictated by: Dictated on workstation # [id number]
[2017-01-15 13:54] LABS: THYROID STIMULATING HORMONE 0.32 UIU/ML (0.35-4.94)
[2017-01-15 14:07] LABS: MAGNESIUM 2.1 MG/DL (1.8-2.4)
[2017-01-15 14:20] LABS: TROPONIN I < 0.30 NG/ML (<0.30)
[2017-01-15 15:04] LABS: BILIRUBIN,URINE NEGATIVE (NEGATIVE); KETONES,URINE NEGATIVE (NEGATIVE); LEUKOCYTE ESTERASE ,URINE NEGATIVE (NEGATIVE); NITRITE,URINE NEGATIVE (NEGATIVE); PH,URINE 8 (5-9); PROTEIN,URINE NEGATIVE (NEGATIVE); UROBILINOGEN,URINE NORMAL (NORMAL)
[2017-01-15 16:52] VITALS: BP 115/73
== END 2017-01-15 16:53 | disposition home or self-care (01) ==
LOC: EDUNIT# 12:59 → ER 13:00
DX: R00.2 Palpitations (principal); F17.210 Nicotine dependence, cigarettes, uncomplicated
CPT/HCPCS: 36415; 71020; 80053; 80306; 81000; 83735; 84443; 84484; 85025; 85379; 93005; 96360